=== PATIENT | male | born 2005 | race African-American/Black ===

== ENCOUNTER 2025-04-02 16:43 | Emergency (ER) | payer OTHER ==
[2025-04-02 16:45] VITALS: PULSE 70; RESP 16; O2SAT 100
== END 2025-04-02 17:27 | disposition left against medical advice (07) ==
LOC: ER 16:43
DX: F91.9 Conduct disorder, unspecified (principal); Z53.21 Procedure and treatment not carried out due to patient leaving prior to being seen by health care provider
CPT/HCPCS: 99281